=== PATIENT | female | born 1990 | race Caucasian/White ===

== ENCOUNTER 2022-12-10 08:00 | Outpatient (RCR) | payer MEDICAID, SELFPAY ==
--- NOTE | 2022-12-10 09:00 | BH.SGPN.GN ---
Behaviors/Verbalizations/Mental Status: []Pt alert and oriented, casually dressed and groomed. Eye contact good. Motor activity appropriate. Speech within normal limits. Affect constricted, mood anxious and depressed. thoughts linear, logical, no signs of hallucinations or delusions. Reviewed pt?s symptom tracker, no risk for suicidal ideation, plan, or intent as of 12/10/22. Pt's scores are within her baseline. Client Response/Progress/Benefit: []Pt's first day of IOP tx. Pt connected with peers and was engaged throughout session. Pt reports feeling anxious today, but pt feels motivated for tx. Pt shared her mental health wins today include getting to IOP, going for a hike with a friend yesterday, and enjoying nature. Pt is working full-time while completing IOP, so figuring out her schedule is a stressor for pt. Pt is also coping with a recent break-up which has triggered depression and isolation. Pt appeared to benefit from connecting with peers and identifying tx goals. Pt will continue IOP tx to prevent decompensation, improve daily functioning, and gain healthy coping skills. Narrative Note: []
--- NOTE | 2022-12-10 10:10 | BH.SGPN.GN ---
Behaviors/Verbalizations/Mental Status: []Eye contact is fair. Motor activity is appropriate. Appearance is casual and grooming tended to. Speech is Appropriate. Mood is anxious. Affect is constricted. Thoughts are linear and logical. No evidence of psychosis. Client Response/Progress/Benefit: []Client receptive of session, engaged throughout AEB taking notes and at times providing input and examples to discussion. Appeared to connect with group topic of cognitive distortions and the impact of thought patterns on mental health, coping behaviors, and relationships. Client stated she struggles with predicting the future distortion. Client stated when she predicts the future she often sets herself up for failure. Client seemed to benefit from increased awareness of distorted thoughts and impact distortions can have on mental health. Will continue IOP tx to improve emotion regulation, challenge negative thinking, and prevent decompensation.
--- NOTE | 2022-12-12 09:10 | BH.SGPN.GN ---
Behaviors/Verbalizations/Mental Status: []Eye contact fair to good, casually dressed, motor activity appropriate, speech normal rate and tone, mood anxious and depressed, constricted affect, thoughts linear and intact, no evidence of delusions or hallucinations. Reviewed pt's symptom tracker, denies any suicidal ideation, plan, or intent as of this date 12/12/22. Client Response/Progress/Benefit: []Pt new to IOP tx, second day in program and noted still feeling somewhat nervous about beginning tx. Appeared to respond well to session, attentive and willing to process with group. Pt reports feeling sad this morning. She reflected on current mental health wins which included making time for small self-care goals, such as stretching, in between her work appointments. Additional win noted as challenging herself to get back into disc golfing and joining a local league. Shared hopes that this will help her to meet more people. Identified current stressor as having limited supports in the area and therefore fear she will have to spend her upcoming birthday alone. Group encouraged pt to attend [facility] on Saturday so as not to be alone on her birthday which pt agreed to doing. Narrative Note: []
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
--- NOTE | 2022-12-12 11:10 | BH.SGPN.GN ---
Behaviors/Verbalizations/Mental Status: []Client alert and oriented, casually dressed and groomed. Eye contact fair. Motor activity appropriate. Speech within normal limits. Affect constricted, mood dysthymic. Thoughts linear, logical, no signs of hallucinations or delusions. Client Response/Progress/Benefit: []Client was a active participant in group discussion AEB providing contributions throughout group and listening attentively to others. Client able to connect how current safety behaviors are reinforcing anxiety. Attentive during psychoeducation on anxiety management skills. The group practiced belly breathing and chair yoga in session. Engaged and attentive during group brainstorm of healthy anxiety reduction skills. Appeared to benefit from practicing in the moment coping skills and increasing repertoire of anxiety management skills. Client will continue IOP tx to manage anger, increase healthy coping skills, and prevent decompensation.
[2022-12-12 11:29] VITALS: BP 138/85; PULSE 64
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
--- NOTE | 2022-12-12 12:13 | BH.DR.ITP ---
Initial Treatment Plan Patient Information Visit Information: ADMISSION DATE: EXPECTED LOS: 4-6 weeks Problems/Symptoms Problem #1:: Depression Symptom:: Sadness, hopelessness, worthlessness, guilt, passive thoughts of , biological disruption of sleep, fatigue Problem #2:: Anxiety Symptom:: Worry, rumination
--- NOTE | 2022-12-17 10:06 | BH.SGPN.GN ---
Behaviors/Verbalizations/Mental Status: []Pt alert and oriented, casually dressed and groomed. Eye contact good. Motor activity appropriate. Speech within normal limits. Affect congruent, mood anxious. Thoughts linear, logical, no signs of hallucinations or delusions. Client Response/Progress/Benefit: []Pt was an active participant in group discussions. Participated with peers in experiential activity. Pt participated in an interactive discussion with peers in which they worked together to define what coping skills are. Group then identified unhealthy coping skills which included; isolating, not asking for help, procrastination, and lashing out on others or self. Group discussed what barriers commonly make using healthier coping skills more difficult. Pt displayed insight that she struggles with breaking old habits and stepping outside of her comfort zone which has been a barrier to choosing healthier coping skills in the past. Benefited from increased awareness and education the benefits of having a healthy coping repertoire and consequences of unhealthy coping on mental health and relationships. Will continue IOP tx to further promote healthy emotional regulation skills, combat distortions, and improve self-care. ?? Narrative Note: []
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
--- NOTE | 2022-12-17 11:10 | BH.SGPN.GN ---
Behaviors/Verbalizations/Mental Status: []Client alert and oriented, casually dressed and groomed. Eye contact good. Motor activity appropriate. Speech within normal limits, quiet. Affect constricted, mood anxious. Thoughts linear, logical, no signs of hallucinations or delusions Client Response/Progress/Benefit: []Client responded well to session, taking notes and contributing. Group discussed the different categories of coping skills which included distraction, emotional release, grounding, self-love, and thought challenging. Client participated in creating a coping skills ?menu? from the five categories of coping skills. Client's coping skill menu included: spending time with pets, guided meditation, exercise, positive self-talk, and Delay, Distract, Decide skill. Client reported some of these skills are new and others are skills she wants to use more often. Appeared to benefit from increasing repertoire of healthy coping skills. Will continue tx to continue use of healthy coping skills, challenge distortions, and prevent decompensation.
--- NOTE | 2022-12-18 09:01 | BH.SGPN.GN ---
Behaviors/Verbalizations/Mental Status: [] Eye contact is fair. Motor activity is appropriate. Appearance is casual. Speech is Appropriate. Mood is anxious. Affect is constricted. Thoughts are linear and logical. No evidence of psychosis. Reviewed daily check in sheet and no reports of suicidal ideations or intent. Client Response/Progress/Benefit: [] Pt participated at times during the group discussion. Attentive. Pt identified mental health positive as completing all her tasks for work. Additional mental health positive as taking time to engage in self-care like taking a bath, watching one of her favorite tv shows, doing her nighttime face routine, and choosing to go to bed at a decent time. Pt reported current stressor as feeling very tired today despite getting plenty of sleep last night. Benefited from group support, encouragement, and feedback. Will continue in IOP to improve daily functioning, increase healthy coping skills, and prevent decompensation.
--- NOTE | 2022-12-18 10:10 | BH.SGPN.GN ---
Behaviors/Verbalizations/Mental Status: [] Eye contact is good. Motor activity is appropriate. Appearance is casual. Speech is Appropriate. Mood is anxious. Affect is congruent. Thoughts are linear and logical. No evidence of psychosis. Client Response/Progress/Benefit: [] Pt did not participate in group discussions. Attentive during psychoeducation. Engaged and participated in experiential activity. Attentive as peers worked together to define pitfalls in relation to mental health. Group was able to identify several common examples of pitfalls which included; negative automatic thoughts, sad songs, isolation, not communicating, self-harm, impulsive spending, over-committing oneself, and self-sabotage. Able to correlate experiential activity and topic of pitfalls. Able to identify strategies to use in activity (as well as in life) to overcome or manage mental health pitfalls. Benefited from increased understanding of types of common pitfalls that impact mental health. Will continue in IOP to maintain safety, prevent decompensation, and improve functioning. Narrative Note: []
--- NOTE | 2022-12-18 11:10 | BH.SGPN.GN ---
Behaviors/Verbalizations/Mental Status: []Pt alert and oriented, neatly dressed and groomed. Eye contact good. Motor activity appropriate. Speech within normal limits. Affect congruent, mood euthymic. Thoughts linear, logical, no signs of hallucinations or delusions.? Client Response/Progress/Benefit: []Pt receptive of session, engaged throughout AEB pt?contributing to discussion, as well as taking notes.? Pt and group processed how the emotions and perspective of the group impacted the activity positively and negatively at times.?Group worked together to identify different coping skills to help manage pitfalls. Pt identified pitfalls they struggle with such as avoidance and isolating, unrealistic expectations, and letting emotions drive ?my bus.? ? Pt plans to work on these pitfalls by keeping a routine and practicing mindfulness skills.?Benefited from identifying personal pitfalls and strategies to overcome these pitfalls. Will continue IOP tx to improve mood stability, reduce negative thinking, and increase healthy coping skills.? Narrative Note: []
--- NOTE | 2022-12-19 09:00 | BH.SGPN.GN ---
Behaviors/Verbalizations/Mental Status: []Pt alert and oriented, neatly dressed and groomed. Eye contact good. Motor activity appropriate. Speech WNL. Mood stressed, affect full. Thoughts linear, logical, no signs of hallucinations or delusions. Reviewed pt's symptom tracker, no risk factors noted for 12/19/22. Denies any active SI. Client Response/Progress/Benefit: []Pt responded well to session, attentive and engaged. Pt reports feeling overwhelmed this morning as pt recently hosted a friend, which was positive, but did not allow pt to have self-care time last night. Pt shared she plans to engage in some self-care activities tonight after IOP and work. Pt stated she enjoyed time with her friend which was positive and pt recently advocated for herself with the [employer]. Pt stated money is her biggest stressor right now, but pt is going to sit down and create a budget. Pt appeared to benefit from reflecting on her use of coping skills. Pt will continue IOP tx to improve daily functioning, reduce negative thinking patterns, and improve distress tolerance. Narrative Note: []
--- NOTE | 2022-12-19 10:10 | BH.SGPN.GN ---
Behaviors/Verbalizations/Mental Status: []Client alert and oriented, casually dressed and groomed. Eye contact good. Motor activity appropriate. Speech within normal limits. Affect congruent, mood dysthymic and anxious. Thoughts linear, logical, no signs of hallucinations or delusions. Client Response/Progress/Benefit: []Client was an active participant in group discussions and activity. Attentive during psychoeducation. Client along with peers were able to identify several negatives on the picture given to the group. Client and peers also identified positives in the picture and made the connection that finding positives is much more difficult. Interactive discussion on the definition of perspective, how perspective is formed, and why perspective is important in treatment. Client along with peers also identified that perspective can either motivate and encourage treatment or become a barrier to receiving help. Client shared currently she has a more hopeful perspective towards life. Client stated current perspective has been impacted by past positive experiences in tx and feeling she is making progress towards further improving her mental health. Will continue in IOP to continue use of healthy coping, increase stress management skills, and prevent decompensation. Narrative Note: []
--- NOTE | 2022-12-19 11:10 | BH.SGPN.GN ---
Behaviors/Verbalizations/Mental Status: []Pt alert and oriented, casually dressed and groomed. Eye contact good. Motor activity appropriate. Speech within normal limits. Affect congruent, mood euthymic, slightly anxious. Thoughts linear, logical, no signs of hallucinations or delusions. Client Response/Progress/Benefit: []Pt was attentive and contributed in larger group discussion. Pt completed strengths exploration worksheet. Pt able to acknowledge how these strengths are helping pt and can continue to help pt in mental health journey. Reflected on how her bravery, persistence, and open mindedness have helped pt in the past and continue to help pt with her mental health. Pt worked with group to identify strategies that can help increase utilization of personal strengths. Benefited from identifying personal strengths and strategies for enhancing use of identified strengths. Pt to continue IOP tx to improve emotion regulation, increase use of healthy coping skills, and prevent decompensation.
--- NOTE | 2022-12-25 10:08 | BH.SGPN.GN ---
Behaviors/Verbalizations/Mental Status: []Eye contact is good. Motor activity is appropriate. Appearance is casual. Speech is Appropriate. Mood is euthymic. Affect is congruent, full. Thoughts are linear and logical. No evidence of psychosis. Client Response/Progress/Benefit: []Pt did well to be an engaged participant in group discussions. Attentive during psychoeducation on SMART goals (Specific, Measurable, Achievable, Realistic, and Time-bound) and engaged in group experiential activity. Participated in an interactive discussion with peers in which they worked together to define what a goal is and the benefits of having goals, providing input and examples throughout. Group identified benefits as: provides motivation, increased confidence, personal growth, and sense of accomplishment. Participated in interactive discussion in which group identified barriers to setting goals and following through with goals. Barriers identified included: lack of motivation, negative thoughts, unrealistic expectations, outside stressors, and not knowing where to start. Benefited from increased awareness of benefits and strategies for goal-setting. Will continue in IOP to continue use of healthy coping skills, reframe negative thought patterns, and prevent decompensation.
--- NOTE | 2022-12-25 10:25 | BH.MDN ---
Multi-Disciplinary Note - Note 45-min Individual Time Started:: 09:30 Date: 12/25/22 Purpose of session/treatment goals addressed:: Purpose of session was to address goals 1 and 2 from MTP. Eye Contact:: Good Motor Activity:: Appropriate Appearance:: Neat, Casual Speech:: Appropriate Mood:: Euthymic, Anxious Affect:: Congruent Thoughts:: Linear, Logical, No evidence of hallucinations/delusions noted Staff Interventions:: motivational interviewing, psychoeducation on: - Borderline Personality Disorder comon relationship cycles, maladaptive behavior patterns, strengths perspective, taught coping skills - Dichotomous thinking Client Response:: Client reported that although she was unable to attend group yesterday, she was able to accomplish several tasks and spend time with her grandmother. Shared feeling she is making progress via an improved mood and more hopeful perspective since beginning the IOP program. Went on however to indicate struggling at times with thoughts of ?I shouldn?t be doing this program, it?s a major inconvenience to my coworkers?. Acknowledges use of distortions, specifically absolute thinking patterns, and shared that she often struggles with feeling like a burden or that her needs aren?t a priority. Did well to identify the importance of continuing to make time for her mental health and reminded herself ?there?s never going to be a truly convenient time to take time off? and that ?it is important to address this now in order to feel better and heal?. Discussed often times struggling with absolute thinking and fears of being seen as a burden within her romantic relationships as well. Provided several examples of this and appeared to connect well with psychoeducation on the Borderline Personality Disorder relationship cycle and common cognitive distortions that occur throughout this cycle. Client shared that fear of rejection lead her to test the relationship and continually seek reassurance, ultimately pushing her partner away and reinforcing her fears. Explained that she and her ex had recently decided to give the relationship another try and client would like to prevent her jealousy from sabotaging the relationship. Discussed importance of both partners being open about needs, expectations, and boundaries. Client explained that her partner is ethically non-monogamous and that although she respects this, she struggles with feeling rejected or jealous when her partner is with their spouse. Client receptive of discussion on dichotomous thinking, checking-in with herself on her needs and boundaries regularly, as well as communicating these with her partner, Additionally, discussed importance of client working on maintaining her identity independent of the relationship. Shared plans to continue to cultivate friendships outside of the relationship to develop her own support network, as well as remind herself to regularly engage in hobbies and activities she enjoys independently. Risks/Concerns:: Denies current suicidal ideation, plan or intention. Client future focused. Goals for the future and family are identified protective factors. Progress Toward Goals/Plan:: Progress noted with client reporting improved mood, decreased negative thoughts, and improved motivation. Client followed through with goal from last session of continuing to reach out to supports and try new activities to see what else she may enjoy. Client wants to focus on being independent and improving herself but is also planning to revisit a past relationship. Did well to identify the importance of healthy boundaries in order to effectively be able to do so. Client is to continue IOP to maintain gains, continue use of healthy coping skills, and prevent decompensation. Time Stopped:: 10:09
--- NOTE | 2022-12-25 11:10 | BH.SGPN.GN ---
Behaviors/Verbalizations/Mental Status: [] Eye contact is good. Alert and oriented. Motor activity is appropriate. Appearance is casual. grooming is appropriate. Speech is Appropriate. Mood is euthymic. Affect is congruent.. Thoughts are linear and logical. No evidence of psychosis or hallucinations.. Client Response/Progress/Benefit: []Client was engaged during discussion, did well to complete activity and process with the group. Client was willing to complete the worksheet in which was challenged to develop a personal SMART goal. Client chose the goal of getting outside three times to take a 20 minute walk. Client stated this will benefit her by improving mood, break cycle of being isolated inside, physical activity, and fresh air. Client identified barriers which included: weather, wanting to be lazy, not finding the time, and not wanting to do it alone. Client receptive to identifying solutions for these barriers and willing to begin working on this goal. Benefited from this group by developing a short-term SMART goal related to mental health. Will continue IOP tx to continue use of healthy coping skills, improve confidence and prevent decompensation.
--- NOTE | 2022-12-31 09:05 | BH.SGPN.GN ---
Behaviors/Verbalizations/Mental Status: [] Eye contact is good. Motor activity is appropriate. Appearance is casual. Speech is Appropriate. Mood is depressed/irritable. Affect is congruent. Thoughts are linear and logical. No evidence of psychosis. Reviewed daily check in sheet and she reports 2/5 for suicidal ideation and 0/5 for intent. Client Response/Progress/Benefit: [] Pt participated when prompted. Attentive. Daily symptom tracker notes 4/5 for depression/irritability and 3/5 for anxiety, agitation, and self-harm urges. Shared with the group recent psychosocial stressor over the weekend and how it has impacted her mental health. Elaborated on her stressor which was a relationship break-up. Processed with the group and reports feeling confused, sad, and upset as promises were broken. Very conflicted and complex relationship with other person which has been ongoing stressor for several years. Benefited from group support, encouragement, and feedback .Will continue in IOP to maintain safety, prevent decompensation, and improve functioning. Narrative Note: []
--- NOTE | 2022-12-31 10:20 | BH.SGPN.GN ---
Behaviors/Verbalizations/Mental Status: []Client alert and oriented, casually dressed and groomed. Eye contact fair to good. Motor activity appropriate. Speech within normal limits, less input than usual. Affect congruent, mood depressed. Thoughts linear, logical, no signs of hallucinations or delusions. Client Response/Progress/Benefit: []Client receptive to session AEB listening attentively to others, and taking notes. However, appeared distracted by own thoughts at times throughout session. Worked with group to brainstorm the positive and negative aspects of stress on physical and mental health. Group did well to identify the benefits of stress as well as the impact of distress on performance, relationships, and mental health. Client identified their personal top stressors as: relationship issues, finances, and mental health symptoms. Client reports when the stress overflows client reacts by isolating, giving up, and lashing out. Client seemed to benefit from increased awareness of current stressors and impact stress has on mental health. Recommended to continue IOP tx to stabilize moods, continue to promote consistent self-care and healthy boundaries, and prevent decompensation. Narrative Note: []
--- NOTE | 2022-12-31 11:20 | BH.SGPN.GN ---
Behaviors/Verbalizations/Mental Status: []Pt alert and oriented, casually dressed and groomed. Eye contact good. Motor activity appropriate. Speech within normal limits. Affect congruent, mood depressed, anxious. Thoughts linear, logical, no signs of hallucinations or delusions. Client Response/Progress/Benefit: []Pt engaged participant AEB listening attentively to others and contributing to discussion. Attentive during psychoeducation on the 4 A's of Coping with Stress (Avoid, Alter, Adapt, Accept). Participated in experiential activity in which group members had to utilize stress management skills in the moment. Pt was encouraging others and providing suggestions to group. Pt engaged in review of the 4 A?s and picked wanting to work on altering her approach to finances by creating a budget and changing current spending habits. Benefited from processing in the moment stress management strategies and identifying new ways to cope with stress. Will continue in IOP tx to prevent decompensation, increase healthy coping skills, and improve emotion regulation. Narrative Note: []
--- NOTE | 2023-01-01 10:05 | BH.SGPN.GN ---
Behaviors/Verbalizations/Mental Status: [] Client alert and oriented, neatly dressed and groomed. Eye contact good. Motor activity appropriate. Speech within normal limits. Affect constricted, mood euthymic and anxious. Thoughts linear, logical, no signs of hallucinations or delusions. Client Response/Progress/Benefit: [] Client was somewhat an active participant in group discussions sharing on own and when prompted. Attentive during psychoeducation on 4 types of conflict styles (Competing, Collaborating, Avoiding, and Accommodating). Worked with group to define conflict and identify how conflict is helpful. With peers identified barriers to addressing or managing conflict which included: wanting to avoid difficult feelings/emotions, lack of communication skills, and cognitive distortions. Client believes they use the avoiding style the most. Client shared this style leads to her not feeling heard with things building up in her. Benefited from group due to increase insight and awareness of benefits to conflict, conflict styles, and obstacles to managing conflict. Will continue in IOP to prevent decompensation, gain healthier core beliefs, and reduce negative thinking patterns. Narrative Note: []
--- NOTE | 2023-01-01 11:15 | BH.SGPN.GN ---
Behaviors/Verbalizations/Mental Status: [] Client alert and oriented, casually dressed and groomed. Eye contact good. Motor activity appropriate. Speech within normal limits. Affect constricted, mood euthymic. Thoughts linear, logical, no signs of hallucinations or delusions. Client Response/Progress/Benefit: [] Client more engaged in this group AEB contributing to discussion and engaging in activity. Client did well to review current conflict style and its impact on mental health. Attentive during discussion on strategies for more effectively managing conflict in personal life. Client participated in activity and did well to be collaborating with challenging herself to be more assertive to be able to fully participate. Client given handout on fair fighting rules. Client indicated that she was gong to work on expressing her feeling with words. Appeared to benefit from gaining strategies to help client better manage conflict. Will continue IOP tx to prevent decompensation increase overall functioning, and increase self-care. Narrative Note: []
--- NOTE | 2023-01-01 13:06 | BH.MDN_ITS ---
Multi-Disciplinary Note - Note 45-min Individual Time Started:: 09:20 Date: 01/01/23 Purpose of session/treatment goals addressed:: The purpose of this session was to address current stressors, review homework on maladaptive coping behaviors, and create a self-care coping plan incorporating identified adaptive behaviors. Eye Contact:: Good Motor Activity:: Appropriate Appearance:: Neat, Casual Speech:: Appropriate Mood:: Anxious, Dysthymic Affect:: Congruent Thoughts:: Linear, Logical, No evidence of hallucinations/delusions noted Staff Interventions:: thought challenging, psychoeducation on: - maladaptive coping, reviewed BPD relationship cycle, anxious attachment, CBT techniques, strengths perspective, goal setting Client Response:: Pt responded well to session, open to meeting with therapist. Pt reports experiencing a significant relationship stressor over the weekend which has been impacting her mental health and ability to focus. Shared that she and her ex, whom pt reports she is trying to get back together with, spent time together on Saturday night which had been a positive experience. However, the following day pt received a message from her ex stated that she is feeling unsure and needs some space to think. Pt discussed feeling overwhelmed and frightened by this, resulting in pt catastrophizing and reassurance seeking. Noted that she failed to give her ex the space she had requested and instead in sisted on more information, became upset, and instigated an argument. Able to identify the components of the BPD relationship cycle previously reviewed. Pt noted connecting with the various components and shared that this had prompted her took look into attachment styles. Pt connected most with the anxious attachment style and displaying insight into how these characteristics could maintain an unhealthy relationship cycle. Receptive of discussion on importance of using distress tolerance skills to sit with the uncomfortable and give others space, as well as give herself an opportunity to calm herself down enough o consider her situation and respond rationally rather than based on emotion. Reviewed the adaptive and maladaptive behavior assessment provided for homework in prior session. Pt identified several adaptive behaviors she can incorporate into her daily routine to encourage in the moment application when experiencing distress. Plans to practice going on more regular walks, listening to podcasts she enjoys, and regularly reaching out to other friends. Risks/Concerns:: Pt denies any suicidal ideations, plan, or intent today. Protective factors noted and future oriented. Progress Toward Goals/Plan:: Progress variable with recent regression noted. Pt's mood stability continues to be dependent on her relationship; however, pt i s displaying improved insight into her maladaptive behaviors impeding progress. Reports recent conflict and difficulties in regulating her emotions but understands what contributed to this and is able to identify healthy approaches moving forward. Pt admits to engaging in self-sabotaging behaviors impacting the relationship, reports remorse about choices, and is angry with herself. Shared increased isolation, sleeping to avoid, but eventually did use opposite action to engage in self-care via cleaning her apartment, giving herself a pedicure, and listening to music. Pt will continue IOP tx to prevent decompensation, reduce self-sabotaging behaviors, and continue to promote application of healthy coping skills. Time Stopped:: 10:00
== END 2023-01-01 23:59 ==
LOC: BHIOP 08:00
PROVIDERS: PCP Family Medicine; Visit Provider Psychiatry & Neurology Psychiatry
DX: F33.2 Major depressive disorder, recurrent severe without psychotic features (principal); F41.1 Generalized anxiety disorder; F60.3 Borderline personality disorder; Z79.899 Other long term (current) drug therapy; F12.90 Cannabis use, unspecified, uncomplicated
CPT/HCPCS: 90792; H2012; H2020; S9480; T1002; 90834

== ENCOUNTER 2023-01-02 07:32 | Outpatient (RCR) | payer MEDICAID, SELFPAY ==
[2023-01-02 00:40] VITALS: BP 138/85; PULSE 64
--- NOTE | 2023-01-02 09:07 | BH.SGPN.GN ---
Behaviors/Verbalizations/Mental Status: []Eye contact good, casually dressed, motor activity appropriate, speech normal rate and tone, mood depressed and anxious, congruent affect, thoughts linear and intact, no evidence of delusions or hallucinations. Reviewed pt's symptom tracker, denies reports of suicidal ideation, plan, or intent as of this date. Future oriented. Client Response/Progress/Benefit: []Pt responded well to session, attentive and willing to process with group. Pt reports feeling overwhelmed this morning. Attributes this to ongoing stress related to the recent end of her relationship and trying to navigate that. Pt originally struggling to identify wins, though with assistance did well to identify current mental health wins which included not responding to her ex?s texts while her emotions were high. Pt shared an additional win as making her self-care a priority and taking the time to make something for herself for dinner. Pt receptive of supportive feedback provided by the group. Appeared to benefit from group?discussion and supportive environment. Recommended continued IOP tx to continue to improve consistency of healthy skill application, promote mood stability and healthy boundary setting, as well as prevent decompensation. Narrative Note: []
--- NOTE | 2023-01-02 10:10 | BH.SGPN.GN ---
Behaviors/Verbalizations/Mental Status: [] Client alert and oriented, casually dressed and groomed. Eye contact good. Motor activity appropriate. Speech within normal limits. Affect congruent mood euthymic. Thoughts linear, logical, no signs of hallucinations or delusions. Client Response/Progress/Benefit: [] Client responded well to session AEB participating in discussion, taking notes throughout, and listening attentively to others. Client was attentive throughout group activity identifying famous individuals and how they overcame failure to be successful. Client helped group identify how fear of failure can impact mental health and relationships. Client with group identified how fear of failure leads to self-sabotage, not trying, and procrastination. Client participated in experiential activity, working with group members to problem solve. Appeared to benefit from increased knowledge of fear of failure. Will continue IOP tx to improve self-confidence, reduce anxious thinking patterns, and reduce avoidance. Narrative Note: []
--- NOTE | 2023-01-02 11:10 | BH.SGPN.GN ---
Behaviors/Verbalizations/Mental Status: [] Client alert and oriented, casually dressed and groomed. Eye contact good. Motor activity appropriate. Speech within normal limits. Affect congruent, mood euthymic. Thoughts linear, logical, no signs of hallucinations or delusions. Client Response/Progress/Benefit: [] Client responded well to session, engaged in the experiential activity and attentive throughout group processing. Client reported fear of failure has kept client from living on her own again. Client completed fear of failure worksheet and was able to identify thoughts and behaviors that reinforce personal fear of failure including family influence, and past experiences. Client participated in small group discussion regarding strategies to overcome fear of failure. Identified wanting to work on setting SMART goals. Appeared to benefit from increased knowledge of strategies to combat fear of failure and gaining self-awareness. Client will continue IOP tx to promote gains in reduced depressive symptoms and to reduce anxiety and avoidance. Narrative Note: []
--- NOTE | 2023-01-02 11:58 | PCM.BH.PN ---
Progress Note Progress Note: And history of Present Illness/Interim History: The patient is a 32-year-old , female who is seen in follow-up at the [facility] behavioral health IOP program where she is being treated for depression. I last saw the patient 3 weeks ago and at that time a prescription was given for Wellbutrin. The patient states that she never started taking the Wellbutrin because she was afraid to take it and now she feels that she does not need the medication. She feels she is slowly improving. She states that her mood is better and she is getting more done at home and not sleeping all the time anymore. She feels she is learning valuable skills in the program that is helping her improve. She still has occasional hopelessness but less so than before. She still feels worthless often and cyst is still somewhat anhedonic. She denies any passive thoughts of and denies suicidal ideation, homicidal ideation, plan for suicide, hallucinations or delusions. She had a significant stressor in the past week when her girlfriend broke up with her. The patient states that this has been hard for her but she dealt with that better than she normally would in the past and she feels this is due to the skills she is learning in the IOP program. Current Psychiatric Medications: [] Celexa 40 mg p.o. daily (on this dose for 3 months); Klonopin 0.25 mg p.o. once a day Mental Status Examination: [] The patient is a 32-year-old female who appears normal for stated age and is casually dressed and groomed with good hygiene. She is thin and has a very short, buzzed haircut. She has 2 nose piercing engages in her ear and tattoos on her neck. She has no psychomotor agitation or retardation and is ambulatory with a normal gait. She is cooperative during the interview. Speech is normal rate and rhythm and fluent with no pressure and eye contact is good. Mood is depressed. Affect is full and normal today. Thought process is goal-directed and organized. Thought content: There is no evidence of passive thoughts of , suicidal ideation, homicidal ideation, hallucinations, delusions or plan for suicide. The patient feels she is benefiting from the program and is encouraged that she is able to use some of the skills she is learning. Reality testing is intact. Impulsivity is moderate. Insight is good. Judgment is intact. Diagnoses: [] 1. Major depressive disorder, recurrent, severe without psychosis 2. Generalized anxiety disorder 3. Borderline personality disorder Plan: [] The patient will continue the IOP program at [facility] as the structure, support, education and group therapy will hopefully prevent worsening of the patient's symptoms that might require hospitalization. The patient felt safe during the interview and if it anytime she does not feel safe she will let us know or go to the emergency room. The risks, options, possible complications and side effects of the medications were discussed with the patient and she understands and accepts these. No medication changes were made today as the patient does not feel she needs any more medication. She will continue to follow-up with her outpatient medical and psychiatric providers and I will see the patient in follow-up while she is in the IOP program.
--- NOTE | 2023-01-02 14:13 | BH.TPR ---
Treatment Plan Review Date of Admission:: 12/12/22 Date of Treatment Plan Review:: 01/02/23 Admitting Diagnoses:: 1. Major depressive disorder, recurrent, severe without psychosis. 2. Generalized anxiety disorder. 3. Borderline personality disorder Current Diagnoses:: 1. Major depressive disorder, recurrent, severe without psychosis. 2. Generalized anxiety disorder. 3. Borderline personality disorder Patient's Response to Treatment:: Pt has responded well to treatment AEB pt consistently attending IOP sessions and self-report of some improvement in symptoms since admission. Pt contributes well during individual sessions and continues to increase in her ability and willingness to actively contribute during group sessions. Pt is making progress in overall ability to apply coping skills outside of IOP, reports overall mood is improved despite several recent stressors, and pt is doing better at managing these stressors without escalating to point of panic or lashing out. Status of Current Problems and Symptoms: Pt's symptoms are still present but resolving. Pt's overall ability to identify and cope with stressors and triggers impacting her thoughts and emotions has significantly improved. Pt reports reduced depression, improved confidence, and reduced reassurance seeking. Shared she has not turned to self-harm since the IOP program has started. Pt reports improved willingness to expand her social support network which is a major are of progress, as pt dependance on her ex continues to be a primary source of stress and unhappiness. Expresses worries about maintenance and pt continues to struggle managing her emotions when faced with unexpected interpersonal triggers at times. Problem #1 Problem Name:: Depression, hopelessness, worthlessness Status of Goals:: Objective 1-complete with ongoing work encouraged. Pt reports reduced depression, improved self-confidence and independence, as well as increased distress tolerance since admission. Pt can identify healthy coping skills including opposite action, thought challenging, going for walks, disc golf, spending time with healthy supports, and self-care. Pt DSM-5 scores show a 25% reduction since admission. Objective 2- in progress. Pt is gaining more awareness of cognitive distortions and the messages she tells herself. Working on reframing all or nothing thinking, emotional reasoning, and personalization, as well as increasing self-compassion. Pt recognizes lack of self-care contributes to depressive sx as well and is setting goals to begin improving daily self-care as well. Team Recommendations:: Treatment team recommends pt continue working on combatting distortions such as personalization and using positive affirmations. Also encourage pt to continue working on self-care to help pt figure out her interests in life. Additionally, pt encouraged to practice sitting with the uncomfortable and opposite action/healthy distraction when attempted to engage in reassurance seeking behaviors. Problem #2 Problem Name:: Anxiety, rumination Status of Goals:: obj 1- complete with ongoing work encouraged. Pt can identify triggers for anxiety and panic. Pt reports reduced worry and improved use of supports, opposite action, and thought challenging to manage anxiety. Pt however has not seen a reduction in anxiety on DSM-5 scores, this may be related to a recent stressor involving pt?s ex which occurred over the weekend and significantly impacted pt anxiety levels. Obj 2 ? Pt reports continued, though fewer intrusive thoughts, as well as well as trying to improve her response to manage triggers. Pt is currently working on improving use of grounding skills and reducing time near or on her phone as this contributes to anxiety levels as well and impedes ability to manage urges to engage in reassurance seeking behaviors. Team Recommendations:: Treatment team recommends that pt continue working on implementing healthy coping skills on a consistent basis to promote gains.
--- NOTE | 2023-01-08 09:05 | BH.SGPN.GN ---
Behaviors/Verbalizations/Mental Status: []Pt alert and oriented, neatly dressed and groomed. Eye contact good. Motor activity appropriate. Speech within normal limits. Affect constricted, mood stressed. Thoughts linear, logical, no signs of hallucinations or delusions. Reviewed pt?s symptom tracker, no risk for suicidal ideation, plan, or intent as of 01/08/23 Client Response/Progress/Benefit: [] Pt responded well to session, attentive and receptive to feedback. Pt reports feeling burnout this morning as pt is working full-time, coming to IOP, and getting outpatient counseling. Pt admits that she could set more boundaries and change her schedule, but pt struggles with this. Pt receptive to talking with work and her outpatient therapist about scheduling. Pt's mental health wins this morning are that pt went to a yoga class with her mother and pt is trying to prioritize self-care more. Pt appeared to benefit from reflecting on coping skills she can use to manage current stressors. Pt will continue IOP tx to reduce anxiety, increase application of healthy coping skills, and improve mood stability. Narrative Note: []
--- NOTE | 2023-01-08 10:15 | BH.SGPN.GN ---
Behaviors/Verbalizations/Mental Status: []Pt alert and oriented, neatly dressed and groomed. Eye contact good. Motor activity appropriate. Speech within normal limits. Affect constricted, mood dysthymic. Thoughts linear, logical, no signs of hallucinations or delusions. Client Response/Progress/Benefit: []Pt was an active participant in group discussions and experiential activity. Attentive during psychoeducation. Pt provided input during discussion on types of social supports which included; family, friends, PCP, mental health providers, support groups, pets, ourselves, community classes, etc. Pt along with the group identified mental health benefits of social support which patient and group identified as; it can help with emotional release, help one to feel heard, validation, distraction, they can encourage us, provide motivation, provide accountability, and boost our mood. Pt also identified personal barriers to obtaining support which included; burning herself out, not knowing how to ask for help, and having high expectations for her supports. Benefited from increased awareness of mental health benefits of social support and obstacles that prevent one from utilizing support. Will continue in IOP to reduce self-sabotaging behaviors, improve daily functioning, and increase distress tolerance skills. ? Narrative Note: []
--- NOTE | 2023-01-08 11:10 | BH.SGPN.GN ---
Behaviors/Verbalizations/Mental Status: []Pt alert and oriented, casually dressed and groomed. Eye contact good. Motor activity appropriate. Speech within normal limits. Affect congruent, mood anxious and dysthymic. Thoughts linear, logical, no signs of hallucinations or delusions. Client Response/Progress/Benefit: []Pt was an active participant throughout AEB contributing to discussion, providing personal examples, and taking notes.? Pt provided input during discussion on the types of support our supports can provide. Pt able to identify current support system and barriers that get in the way of using supports by drawing out their own support net. Personal barriers included relying heavily on one support over others, not reaching out for help, and poor boundaries. Pt reported after identifying what type of supports they receive; they gained awareness that they could benefit from more emotional supports. Pt identified steps to achieve this by communicating her support needs with her supports, as well as reaching out to other supports and not just the same one or two. Pt seemed to benefit from identifying the type of support pt needs to work on improving. Pt recommended to continue IOP tx to prevent decompensation, improve mood stability, and continue to promote healthy boundaries. Narrative Note: []
--- NOTE | 2023-01-10 12:11 | BH.COMM ---
Communication Note - Communication with Client Communication Note: Pt scheduled for IOP group and individual sessions on this date; however cancelled. This is the third time pt has cancelled this week and therapist discussed concerns, as well as potnetial impacts on mental health tx progress. Pt acknowledged these and ensured she is not isolating. Reports plans to attend group Saturday, Saturday, and Saturday of next week. Will follow-up.
--- NOTE | 2023-01-14 09:00 | BH.SGPN.GN ---
Behaviors/Verbalizations/Mental Status: [] Eye contact is good. Motor activity is appropriate. Appearance is casual. Speech is Appropriate. Mood is euthymic. Affect is full. Thoughts are linear and logical. No evidence of psychosis. Reviewed daily check in sheet and no reports of suicidal ideations or intent. Client Response/Progress/Benefit: [] Pt participated at times during the group discussions. Attentive. Daily symptom tracker notes 02/03 for depression, anxiety and irritability. States that she took a couple days off from treatment and work and feels restored. It has been a struggle to balance work and treatment. She attended a large social event over the weekend which was very helpful. I'm feeling better this week. Working through grief associated with recent break-up and setting boundaries which she hopes to be able to maintain. Able to identify how the boundaries will positively impact her mental health. Benefited from group support, encouragment, and feedback. Will continue in IOP to prevent decompensation, increase healthy coping skill, and to stabilize mood. Narrative Note: []
--- NOTE | 2023-01-14 10:00 | BH.SGPN.GN ---
Behaviors/Verbalizations/Mental Status: []Eye contact is good. Motor activity is appropriate. Appearance is casual. Speech is Appropriate. Mood is anxious and dysthymic. Affect is congruent. Thoughts are linear and logical. No evidence of psychosis. Client Response/Progress/Benefit: []Pt was an active participant in group discussions and experiential activity. Attentive during psychoeducation on resilience. Participated in interactive discussion with peers on the definition of resilience and where it comes from. Group identified that resiliency can be impacted by; past experiences, learned behaviors, and limited or toxic supports. Pt shared resilience has been difficult for her during times in which she does not have a healthy support system. Group also worked together to identify the benefits of being resilient and how it is related to mental health. Able to relate experiential activity of group juggle to topics of resilience. Worked well with peers in small group in which they identified factors that contribute to resilience. Benefited from increased awareness of resilience and the factors that contribute to building resilience. Will continue in IOP to prevent decompensation, increase healthy coping and improve boundary setting, as well as continue to improve functioning. Narrative Note: []
--- NOTE | 2023-01-14 10:25 | PCM.BH.PN_ITS ---
Progress Note Progress Note: In history of Present Illness/Interim History: [] The patient is a 32-year-old female with a history of depression, anxiety and borderline personality disorder who is seen in follow-up at the [facility] behavioral health IOP program. I last saw the patient 2 weeks ago and at that time no medication changes were made as the patient did not wish to take any more medications. She feels she is slowly improving continuously while in the program and learning valuable skills. She feels she is enjoying the program and has used the skills to help deal with the break-up of her and her girlfriend. Mood remains improved with minimal to mild depression. She denies any hopelessness now. She denies passive thoughts of , suicidal ideation, homicidal ideation, plan for suicide, hallucinations or delirium or delusions. Current Psychiatric Medications: [] Celexa 40 mg p.o. daily (on this dose for 3- 1/2 months); Klonopin 0.25 mg p.o. daily. Mental Status Examination: [] The patient is a 32-year-old female who appears normal for stated age and is casually dressed and groomed with good hygiene. She has a short haircut and has tattoos on her neck and to nose piercings. She is ambulatory with a normal gait and has no psychomotor agitation or retardation. She is cooperative and pleasant during the interview. Speech is normal rate and rhythm and fluent with no pressure and eye contact is good. Mood is minimally depressed to euthymic. Affect is full and normal today. Thought processes goal-directed and organized. Thought content: The patient is hopeful for the future. There is no evidence of passive thoughts of , suicidal ideation, homicidal ideation, hallucinations, delusions or plan for suicide. Reality testing is intact. Impulsivity is moderate. Insight is good. Judgment is intact. Diagnoses: [] 1. Major depressive disorder, recurrent, severe without psychosis (resolving) 2. Generalized anxiety disorder 3. Borderline personality disorder Plan: [] The patient will continue the IOP program at [facility] as the structure, support, education and group therapy are improving the patient's symptoms. The patient felt safe during the interview and if it anytime she does not feel safe she will let us know or go to the emergency room. No medication changes were made today. The patient has an appointment with a new psychiatrist, Dr. Conte tomorrow as this is a better location for her to have her psychiatrist. I will see the patient in follow-up while she is in the IOP program.
--- NOTE | 2023-01-14 11:10 | BH.SGPN.GN ---
Behaviors/Verbalizations/Mental Status: []Pt alert and oriented, neatly dressed and groomed. Eye contact good. Motor activity appropriate. Speech within normal limits. Affect constricted, mood stressed. Thoughts linear, logical, no signs of hallucinations or delusions Client Response/Progress/Benefit: []Pt responded well to session AEB completing the resilience worksheet provided. Pt participated in the discussion and worked cooperatively with group to identify strategies to enhance each of the components discussed. Pt reports belief they already use resilience trait of??self-awareness? as pt reports belief she knows what she wants and needs ?most of the time.??Pt stated they would like to continue to develop resilience trait of ?making connections.? Pt seemed to benefit from discussing strategies for improving personal resilience and identifying resilience traits pt already possesses. Progress noted as pt continues to report utilizing healthy coping skills outside of IOP tx. Will continue IOP tx to improve mood stability, reduce negative thinking patterns, and increase self-care. Narrative Note: []
--- NOTE | 2023-01-14 14:23 | BH.MDN ---
Multi-Disciplinary Note - Note 45-min Individual Time Started:: 09:15 Date: 01/14/23 Purpose of session/treatment goals addressed:: To work on goal #1 of pt's treatment plan. Another goal was to process recent stressor and identify a plan for maintaining recently established boundaries. Discharge planning Eye Contact:: Good Motor Activity:: Appropriate Appearance:: Neat, Casual Speech:: Appropriate Mood:: Dysthymic Affect:: Congruent Thoughts:: Linear, Logical, No evidence of hallucinations/delusions noted Staff Interventions:: thought challenging, CBT techniques, strengths perspective, other - created a Post Break-up Coping Plan Client Response:: Pt responded well to session, open to meeting with therapist. Pt shared beliefs that she is improving in her overall response to stressors and ability to use DBT ?[employer]? skill in doing so. Discussed several interactions over the weekend with her ex, whom pt had been in the process of revisiting a relationship with, that resulted in pt making the decision to create a firm boundary and end any prospects of a relationship. Shared she had been able to recognize several unhealthy characteristics of the relationship and it?s impact on her mental health and sense of self-worth when worrying about the relationship. Expressed knowing that the healthiest decision is to end the toxic relationship cycle, despite continuing to have feelings for her ex. Identified a need to limit use of her phone for the remainder of the weekend, as she did not want to risk engaging with her ex and risk compromising the boundary she has established. Identified this as difficult and although she feels confident in her decision, fears not being able to maintain it. Receptive of discussion on creating a ?Post Break-up coping plan? to prevent from returning to the relationship. Remainder of session spent discussing this. Pt identified reasons why she ended the relationship to remind herself of, warning signs that she is beginning to consider compromising the boundary, supports to reach out to, things to avoid that remind her of her ex, and coping skills. Pt shared plans to also reduce her daily work hours on days she attends IOP group to allow for more time for self-care activities. Discussed discharge for 01/29. Risks/Concerns:: Pt denies any active suicidal ideations, plan, or intent as of 01/14/23. Future oriented. Progress Toward Goals/Plan:: Pt is making progress on treatment goals AEB consistent application of skills, and insight into pitfalls when not consistently using skills. Reports some depression related to recent boundary with ex, but feels she is coping much better with this than she would have in the past. Feels she is making progress in improving overall mood stability, decision making, and use of healthy supports and self-care. Pt continues to endorse a depressed mood, some anxiety, and difficulties in managing anger when disappointed or plans are changed on her. Pt will continue IOP tx to prevent further decompensation, increase ability to manage emotions, and improve daily functioning. Pt sees Dr. Conte for medication management this week, 01/15/23 and plans to continue to see already established counselor following IOP d/c on 01/29. Time Stopped:: 09:53
--- NOTE | 2023-01-15 09:15 | BH.SGPN.GN ---
Behaviors/Verbalizations/Mental Status: []Pt alert and oriented, neatly dressed and groomed. Eye contact good. Motor activity appropriate. Speech within normal limits. Affect congruent, mood content. Thoughts linear, logical, no signs of hallucinations or delusions. Reviewed pt?s symptom tracker, no risk for suicidal ideation, plan, or intent as of 01/15/23 Client Response/Progress/Benefit: []Pt responded well to session, attentive and receptive to feedback. Pt reports feeling restored this morning after going to a yoga class with her mother last night. Pt shared she bought a membership and looks forward to continuing with yoga. Pt also went to her outpatient psychiatry appointment this morning which was another mental health win today. Pt's stressor today is that this is her second day off of Klonopin and she feels slightly on edge today. Pt was given advice and strategies from peers which pt appeared to benefit from. Pt will continue IOP tx to promote mood stability, increase distress tolerance skills, and reduce isolation. Narrative Note: []
--- NOTE | 2023-01-15 10:15 | BH.SGPN.GN ---
Behaviors/Verbalizations/Mental Status: [] Eye contact is good. Motor activity is appropriate. Appearance is casual. Speech is Appropriate. Mood is anxious. Affect is congruent. Thoughts are linear and logical. No evidence of psychosis. Client Response/Progress/Benefit: [] Pt was an active participant in group discussion and experiential activity. Attentive. Group worked together to identify how emotions can impact one's communication skills (isolation, lack of focus, avoidance, yelling, distortions, assumptions, rapid speech, and misinterpretation). Able to see correlations between experiential activity and topic by identifying communicate obstacles during the activity. Problem-solved with group possible calming strategies that were used or could have been used during the activity to improve communication. Increased insight and awareness on how emotions can impact communication. Will continue in IOP to prevent decompensation, increase healthy coping, and stabilize mood. Narrative Note: []
--- NOTE | 2023-01-15 11:15 | BH.SGPN.GN ---
Behaviors/Verbalizations/Mental Status: []Pt alert and oriented, casual appearance. Eye contact good. Motor activity appropriate. Speech within normal limits. Affect congruent, mood anxious and depressed. Thoughts linear, logical, no signs of hallucinations or delusions. Client Response/Progress/Benefit: []Pt engaged in session AEB pt listening attentively to peers, providing input, and taking notes. Attentive during psychoeducation on 4 zones of regulation. Pt able to identify feelings and behaviors she exhibits for each zone.? Pt worked with group to identify coping skills they can use to support themself in each zone. Stated beliefs that she is currently in the yellow zone, citing feelings of stress, anxiety, and irritability. Pt reports engaging in consistent grounding and mindfulness skills will help her to get back to the green zone. Benefited from increased education on zones of regulation or stages of alertness for emotions and healthy coping skills to use for each zone. Pt will IOP tx to improve consistent mood stability, continue to promote healthy boundaries, and prevent decompensation. ? Narrative Note: []
--- NOTE | 2023-01-21 09:03 | BH.SGPN.GN ---
Behaviors/Verbalizations/Mental Status: []Eye contact good, casually dressed, motor activity appropriate, speech normal rate and tone, mood euthymic and anxious, congruent affect, thoughts linear and intact, no evidence of delusions or hallucinations. Reviewed pt's symptom tracker, pt denies suicidal ideation, plan, or intent as of this date. Future oriented. Client Response/Progress/Benefit: []Pt responded well to session, attentive and willing to process with group. Pt reports feeling ?disconnected? this morning noting that this may be due to recent med changes and poor sleep. Pt did well to identify wins, which included challenging herself to maintain healthy boundaries with her ex and not give into her ex?s requests to rekindle the relationship. Shared use of opposite action, thought challenging, and positive self-talk in order to do so. Additional win identified as purchasing a new motorcycle over the weekend. Shared this is an activity she really enjoys and feels more connected with herself when doing. Current stressor identified as having racing thoughts impeding her ability to sleep. Receptive of supportive feedback provided by the group and noted plans to continue to monitor this as she adjusts to the medications she is on. Progress noted in continuing to apply skills learned thus far in IOP group. Recommended continued IOP tx to continue to improve consistent use of healthy distress tolerance skills, promote mood stability, as well as prevent decompensation. Narrative Note: []
--- NOTE | 2023-01-21 10:10 | BH.SGPN.GN ---
Behaviors/Verbalizations/Mental Status: []Pt alert and oriented, casually dressed and groomed. Eye contact good. Motor activity appropriate. Speech within normal limits. Affect constricted, mood mellow. Thoughts linear, logical, no signs of hallucinations or delusions. Client Response/Progress/Benefit: []Pt was an engaged participant AEB providing input, listening to others, and taking notes. Participated in interactive group discussion on internal and external barriers to mental health progress. Pt described current reality using a driving metaphor. Pt shared she feels confused by the ?road signs and don?t know where to turn.? Reported desired reality is being able to ?know where I?m driving and have clear signs.? Pt?s strengths in her current reality include setting boundaries, seeking support, and more self-awareness. Pt shared personal barriers to desired realty include: isolation, spending impulsively, and not reaching out for help. Benefited from increased awareness of current barriers to progress as well as current/desired realities. Pt to continue IOP to improve distress tolerance skills, improve self-compassion, and reduce avoidance. Narrative Note: []
--- NOTE | 2023-01-21 11:10 | BH.SGPN.GN ---
Behaviors/Verbalizations/Mental Status: []Pt alert and oriented, casually dressed and groomed. Eye contact good. Motor activity appropriate. Speech within normal limits. Affect congruent, mood euthymic. Thoughts linear, logical, no signs of hallucinations or delusions. Client Response/Progress/Benefit: []Pt engaged during activity, encouraging peers and contributed as group brainstormed ideas on how to cope with internal barriers that keep pts stuck from moving towards goals. Able to identify barriers to desired reality. Identified barriers to current reality to include: buying stuff for happiness, isolation, and not reaching out to supports. Pt wants to work on overcoming the barrier of isolation by using opposite action to either play disc golf, plan an outing with support, or do yoga. Benefited from group by identifying obstacles and solutions to desired reality.? Pt will continue IOP tx to challenge distorted thought patterns, consistently apply healthy coping skills, and prevent decompensation.
--- NOTE | 2023-01-22 09:00 | BH.SGPN.GN ---
Behaviors/Verbalizations/Mental Status: [] Eye contact is good. Motor activity is appropriate. Appearance is casual. Speech is Appropriate. Mood is depressed. Affect is congruent. Thoughts are linear and logical. No evidence of psychosis. Reviewed daily check in sheet and no reports of suicidal ideations or intent. Client Response/Progress/Benefit: [] Pt was an active participant in group discussion on defeating negative thoughts. Attentive. Daily symptom tracker notes 2/5 for depression, anxiety, and irritability. Reports feeling sad yesterday however a mental health win was that she reached out to support and didn't spiral. Also practices self-care and other coping skills. I'm trying new skills. Stressor is her current housing situation which is causing significant negative thoughts and cognitive distortions I should have my own house. Insight that current housing is only temporary and is able to reframe however I just get like this every once in awhile. Group was empathetic and provide support, encouragement, and feedback which was beneficial. Will continue in IOP to prevent decompensation, increase healthy coping, and to stabilize mood. Narrative Note: []
--- NOTE | 2023-01-22 10:10 | BH.SGPN.GN ---
Behaviors/Verbalizations/Mental Status: []Eye contact is good. Motor activity is appropriate. Appearance is neat. Speech is Appropriate. Mood is depressed/irritable. Affect is constricted. Thoughts are linear and logical. No evidence of psychosis. Client Response/Progress/Benefit: []Pt was a mostly passive participant in group discussion. Attentive during psychoeducation. Pt and peers provided thoughts and feedback on the definition of crisis and types of crisis events. Participated in interactive discussion in which group identified unhealthy responses to crisis which included; alcohol use, drug use, sleeping to escape, binge-eating, lashing out at others, isolating, avoiding responsibilities, not caring for oneself, and overspending. Pt was able to identify top warning signs for being in crisis which were isolating/not answering phone calls or texts, uncontrollable worries, and rapid mood changes. Benefited from increased understanding of crisis and pt's personal crisis warning signs. Will continue in IOP to reduce negative thinking, improve distress tolerance skills, and reduce avoidance. Narrative Note: []
--- NOTE | 2023-01-22 11:10 | BH.SGPN.GN ---
Behaviors/Verbalizations/Mental Status: []Pt alert and oriented, casually dressed and appropriately groomed. Eye contact fair to good. Motor activity appropriate. Speech within normal limits. Affect congruent, mood anxious and dysthymic. Thoughts linear, logical, no signs of hallucinations or delusions. Client Response/Progress/Benefit: []Pt responded well to session as evidenced by Pt listening attentively to others and providing strategies during discussion.? Pt identified personal warning signs for crisis and gained further awareness of earliest warning signs. Pt created a crisis action plan to help better manage warning signs for crisis. Pt able to create action plan for warning sign of rapid mood changes. Pt's action plan included: continue to take medications as prescribed, limit interactions with triggering people, focus on one or a few important things rather than overwhelming herself, and do something enjoyable. Pt appeared to benefit from creating a crisis action plan and increasing self-awareness. Pt will continue IOP tx to improve emotion regulation, increase healthy coping and prevent decompensation. Narrative Note: []
--- NOTE | 2023-01-25 11:33 | BH.MDN ---
Multi-Disciplinary Note - Note 45-min Individual Time Started:: 11:59 Date: 01/22/23 Purpose of session/treatment goals addressed:: To work on goal #1 of pt's treatment plan, as well as create a behavior activation goal for breaking depression maintenance cycle. Eye Contact:: Good Motor Activity:: Appropriate Appearance:: Neat, Casual Speech:: Appropriate Mood:: Euthymic, Anxious, Other - tearful in discussing end of relationship Affect:: Congruent Thoughts:: Linear, Logical, No evidence of hallucinations/delusions noted Staff Interventions:: thought challenging, psychoeducation on: - behavior activation and reviewed maintenance cycles, discharge planning, strengths perspective, goal setting Client Response:: Pt receptive of meeting with therapist, engaged and willing to process throughout. Shared that she and her ex had been communicating earlier in the week; however, pt realized this was detracting from her ability to heal and focus on her own mental health. Expressed the decision to maintain a no contact boundary has made the break-up feel ?real? and the fact that ?it?s really over? has started to resonate more with pt. Identified feelings of relief, sadness, grief, and fear as a result. Spent time processing and normalizing pt?s emotions, as well as aided pt in reflecting upon the mental health benefits of her decision to establish a more concrete boundary. Pt discussed continuing to struggle with feeling lonely and not knowing how to spend her down-time. Insight that this has led to difficulties maintaining this boundary in the past, as well as reinforced depressive cycle. Shared a lack of hobbies, as well as living in a basement environment make it difficult to feel comfortable in decision to remain in the area and continue to save money. Reports a desire to develop more hobbies and find was to make her current apartment feel more comfortable. Not knowing what she enjoys or feeling uncomfortable and not immediately enjoying a potential new hobby when trying it have been barriers. Discussed behavior activation strategies for addressing barriers, normalized discomfort in trying something new, and challenged distortions reinforcing urges to quit when uncomfortable or fearing she wont enjoy it. Identified beliefs that her hobbies need to feel ?productive? has also been a barrier and discussed this belief stems from pressure placed on her throughout childhood. Did well to challenge mistaken beliefs and distortions. Reports small goal of challenging herself to continue to try yoga and iqra art painting at least 1-2 more times before making a decision on whether she finds it to be enjoyable, as well as creating a list of various potential hobbies and trying one of these this week. Risks/Concerns:: Pt denies any active suicidal ideations, plan, or intent as of 01/22/23. Future oriented. Progress Toward Goals/Plan:: Pt continues to display and report progress on treatment goals. She reports active skill application via improved self-care, working on health boundaries, thought challenging, and opposite action. Shared improved mood, no longer feeling hopeless, reduced anxiety, and better use of emotion regulation. Continues to report that engaging with her ex has consequential impacts on her mental health, rational thinking, and motivation. She is improving on no contacting ex. Additionally, reports ongoing depressive sx and anxiety about the future, though this is significantly reduced in severity and frequency. Pt sees Dr. Conte for medication management and plans to continue to see already established counselor following IOP d/c on 01/29. Will continue tx one more week to maintain gains and prevent decompensation. Time Stopped:: 12:45
--- NOTE | 2023-01-28 10:15 | BH.SGPN.GN ---
Behaviors/Verbalizations/Mental Status: []Client alert and oriented, casually dressed and groomed. Eye contact good. Motor activity appropriate. Speech within normal limits. Affect congruent, mood euthymic and anxious. Thoughts linear, logical, no signs of hallucinations or delusions. Client Response/Progress/Benefit: []Client responded well to session AEB sharing and listening attentively to others. Client participated in group discussion defining anxiety and common characteristics. Group discussed the impacts of anxiety, its benefits, as well as when it becomes unhealthy. Clinician provided psychoeducation on anxiety diagnoses and the anxiety triangle of physical symptoms, safety behaviors, and common anxious thoughts. Client identified her own physical sx to include cold sweats, fidgeting, and migraines; and safety behaviors as avoidance and reassurance seeking. Client appeared to benefit from increased knowledge of anxiety diagnoses and causes, as well as improved self-awareness of anxiety symptoms. Will continue IOP treatment to increase consistency of healthy coping skills, maintain gains, and prevent decompensation. Narrative Note: []
--- NOTE | 2023-01-28 11:10 | BH.SGPN.GN ---
Behaviors/Verbalizations/Mental Status: []Pt alert and oriented, neatly dressed and groomed. Eye contact good. Motor activity appropriate. Speech within normal limits. Affect congruent, mood euthymic. Thoughts linear, logical, no signs of hallucinations or delusions. Client Response/Progress/Benefit: []Pt was an active participant in group discussion AEB? providing contributions throughout group and listening attentively to others. Pt able to connect how current safety behaviors are reinforcing anxiety. Attentive during psychoeducation on anxiety management skills. The group practiced gentle stretching and thought challenging during session. Engaged and attentive during group brainstorm of healthy anxiety reduction skills. Appeared to benefit from practicing in the moment coping skills and increasing repertoire of anxiety management skills. Pt selected wanting to work on reinforcing boundaries to reduce safety behaviors and be more mindful. Pt will continue IOP tx to further improve mood stability and reinforce healthy coping skills. Narrative Note: []
--- NOTE | 2023-01-28 14:13 | BH.MDN ---
Multi-Disciplinary Note - Note 45-min Individual Time Started:: 09:13 Date: 01/28/23 Purpose of session/treatment goals addressed:: The purpose of this session was to review client's progress as well as strategies that will continue to promote mood stability and gains made in IOP. Another goal was to discuss discharge recommendations and process any current stressors. Eye Contact:: Good Motor Activity:: Appropriate Appearance:: Neat, Casual Speech:: Appropriate Mood:: Euthymic, Anxious Affect:: Congruent Thoughts:: Linear, Logical, No evidence of hallucinations/delusions noted Staff Interventions:: CBT techniques, discharge planning, strengths perspective, reviewed DSM-5 Client Response:: Client responded well to session, open to meeting with therapist. Client reports even though she still has struggles, client feels much more able to cope and is better regulating her emotions. Provided an example from the past weekend in which she faced rejection when attempting to develop a friendship. Shared not engaging in the reassurance seeking behaviors she would have previously used and instead continued with her usual routine. Noted one moment of conflict with her father; however, did well to catch herself when becoming agitated and removed herself from the environment rather than further escalating the situation. Client reports work has been going well and client if beginning to feel more accepting of her home environment as well. Discussed taking time to decorate and paint the chatterjee in order for the space to feel more like her own and less temporary. Client additionally shared following through with goal of trying a potential new hobby, noting that she went with friends and drove RC cars at a local trail. Expressed plans to try this again as she found it enjoyable. Client self-identified progress including: improved mood, reduced sleeping to avoid and isolation, reduced anger, reduced negative thinking and no longer experiencing thoughts of , improve boundaries, and better functioning at home and work. Risks/Concerns:: Client denies any suicidal ideations, plan, or intent as of 01/28/23. Client denies any homicidal ideations. Progress Toward Goals/Plan:: Client has responded well to treatment and has made great progress while in IOP AEB her DSM-5 score reduction and self-report. Client self-reports overall improved mood, reduced severity of symptoms, improved functioning, and increased hope for the future. Client reports increased ability to manage her emotions and challenge negative thoughts. Client still endorses mild anxiety and depression, but she reports increased confidence to manage these symptoms and has healthier ideas of her boundary needs. Client will continue with outpatient counseling and outpatient medication management with current providers. Time Stopped:: 09:55
--- NOTE | 2023-01-29 09:00 | BH.SGPN.GN ---
Behaviors/Verbalizations/Mental Status: []Pt alert and oriented, neatly dressed and groomed. Eye contact good. Motor activity appropriate. Speech within normal limits. Affect congruent, mood euthymic. Thoughts linear, logical, no signs of hallucinations or delusions. Reviewed pt?s symptom tracker, no risk for suicidal ideation, plan, or intent as of 01/29/23 Client Response/Progress/Benefit: [] Pt responded well to session, attentive and engaged. Pt's last day of IOP tx and she reports feeling optimistic this morning. Pt shared the biggest change she notices in the past 6 weeks is pt's ability to let go of relationships that were holding me down. Pt shared she has been able to reduce isolation, improve overall functioning, and find hobbies since being in IOP. Pt reports consistently doing yoga and plans to continue with outpatient therapy after IOP. Pt is worried about falling back into old patterns, but pt recognizes the importance of keeping a daily routine and staying social. Pt will discharge from IOP tx today as pt has accomplished her tx goals and no longer meets criteria for IOP level of care. Narrative Note: []
--- NOTE | 2023-01-29 10:12 | BH.SGPN.GN ---
Behaviors/Verbalizations/Mental Status: []Pt alert and oriented, casually dressed and groomed. Eye contact good. Motor activity appropriate. Speech within normal limits. Affect constricted, mood anxious and euthymic. Thoughts linear, logical, no signs of hallucinations or delusions. Client Response/Progress/Benefit: [] Pt participated in group discussion. Group worked together to identify benefits of healthy relationships which included improves mental health, encouragement, increased resilience, reduced stress, connection, someone to celebrate with, and support during challenges. Group identified factors that lead to unhealthy relationships which included trauma, lack of communication, difference in values, and lack of trust. However, pt reported feeling she has never truly had a healthy relationship. Pt shared connecting with lack of communication and fear of rejection as challenges to relationships. Did well to provide encouragement as well as listen to other?s ideas during the activity. Benefited from increased insight and awareness of benefits of healthy relationships and factors that contribute to unhealthy relationships. Will d/c from IOP tx on this date and continue with outpatient counseling to maintain gains, continue to improve emotion regulations, and prevent decompensation. Narrative Note: []
--- NOTE | 2023-01-29 11:10 | BH.SGPN.GN ---
Behaviors/Verbalizations/Mental Status: [] Client alert and oriented, casually dressed and groomed. Eye contact good. Motor activity appropriate. Speech within normal limits. Affect congruent, mood euthymic. Thoughts linear, logical, no signs of hallucinations or delusions. Client Response/Progress/Benefit: [] Client responded well to session, engaged and taking notes. Worked with group to identify characteristics of healthy and unhealthy relationships. Attentive during psychoeducation about characteristics of healthy, unhealthy, and abusive relationships. Client stated within relationships she does well is being happy to spend time apart. Client reported an area she would like to improve on is being more communicative and trusting. Client noted she tends to shut down and not verbalize her thoughts/feelings within relationships. Recognizes this doesn't help her get her needs met. Reported she also tends to have difficulty trusting others due to past relationships. Appeared to benefit from identifying area wants to work on to build healthier relationships. Pt has shown treatment progress since starting IOP and will discharge from IOP today.
--- NOTE | 2023-01-29 21:07 | BH.AFTERPLAN ---
Aftercare Plan - Demographics Treatment End Date:: 01/29/23 Psychiatrist:: Kimberli Barnes Psychiatrist Office #:: [phone] [facility] Therapist:: Ingrid Borrego Therapist Phone #:: [phone] - Plan Details Progress/Aftercare Plan Details:: Rosetta has made significant strides since starting IOP as shown by her reduced symptoms, ability to challenge distortions, set and maintain healthy boundaries, and overall increased ability to manage emotions and stressors. When Rosetta started IOP, she was severely anxious and depressed following the end of a long-term relationship. Rosetta was isolating, not actively utilizing consistent self-care, was irritable and reported lashing out on close supports, and was feeling hopeless. Now, she is actively using healthy coping skills, practicing self-care, challenging negative thoughts, and using the awareness she has gained to manage her emotions. Rosetta contributed to group discussions, offered emotional support to peers, and consistently followed through with her goals. In individual sessions, Rosetta was receptive to feedback, consistent with homework, and willing to push herself. Rosetta?s DSM-5 scores for depression decreased by 50%, anger decreased by 75%, and anxiety decreased by 33%. Rosetta?s biggest progress was increasing her comfort level with herself and in being alone, which helped her open up to peers and be more vulnerable and willing to try out new hobbies and interests. Rosetta plans to continue with her outpatient providers. Her next counseling appointment is on 01/31/23 with Flaquita, and psychiatry is in March with Dr. Conte. Strategies for Success:: 1. Opposite action! continue using this skill when you want to isolate, avoid, reassurance seek, lash out, or reach back out to toxic people. 2. Self-care. Take that bath, get outside and ride that bike or take the car out, do the yoga, go for walks, continue to set boundaries, and SPEAK KINDLY TO YOURSELF. 3. Challenge distortions. Remember that thoughts are thoughts not facts. Challenge yourself to give yourself credit rather than minimizing. 4. Communicate with supports even though it is hard. 5. Continue to stay social, with HEALTHY people, it has helped so much. 6. Self-compassion. You are just as worthy as anyone else of compassion, understanding, and kaci. Never forget that. 7. Remember setbacks happen, but that does not mean progress is erased. 8. Keep up with therapy and review your binder. 9. Keep working on small steps! You got this! - Appointments Appointments/Referrals to Other Services:: 1. Continue with outpatient providers. Next counseling appointment is on 01/31/23 with Flaquita, 2. Continue with medication management, next psychiatry appointment is in March with Dr. Conte. - Medications Home Medications: Home Medications Vitamin D3 PO/SL QWEEK 12/12/22 citalopram 40 mg tablet (Celexa) 40 mg PO DAILY 12/12/22
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
== END 2023-01-29 12:12 | disposition home or self-care (01) ==
LOC: BHIOP 07:32
PROVIDERS: PCP Family Medicine; Visit Provider Psychiatry & Neurology Psychiatry
DX: F33.2 Major depressive disorder, recurrent severe without psychotic features (principal); F41.1 Generalized anxiety disorder; F60.3 Borderline personality disorder; Z79.899 Other long term (current) drug therapy
CPT/HCPCS: 99213; H2012; H2020; S9480; 90834